=== PATIENT | female | born 1970 | race Hispanic/Latino ===

== ENCOUNTER 2017-10-02 14:28 | Emergency (ER) | payer OTHER ==
[2017-10-02 15:10] LABS: BASOPHILS % (AUTO) 0.7 % (0.0-5.0); HEMATOCRIT 43.8 % (36-48); LYMPHOCYTES % (AUTO) 30.3 % (21.0-51.0); MEAN CORPUSCULAR HEMOGLOBIN 30.1 pg (27.0-33.0); MEAN CORPUSCULAR HGB CONC 34.2 g/dL (32.0-36.0); MEAN CORPUSCULAR VOLUME 87.8 fL (79-99); MONOCYTES % (AUTO) 6.2 % (3.0-13.0); NEUTROPHILS % (AUTO) 61.8 % (40.0-77.0); PLATELET COUNT (AUTO) 306 K/uL (130-400); RED BLOOD CELL COUNT(AUTO) 4.98 MIL/uL (4.00-5.50); RED CELL DISTRIBUTION WIDTH 13.4 % (11.0-15.5); WHITE BLOOD COUNT (AUTO) 7.7 K/uL (4.8-10.8)
[2017-10-02 15:26] LABS: CREATININE 0.8 mg/dL (0.5-1.5); POTASSIUM 3.8 mmol/L (3.5-5.1)
[2017-10-02 15:30] LABS: ALBUMIN 3.5 g/dL (3.5-5.0); BILIRUBIN,TOTAL 0.4 mg/dL (0.2-1.0); TOTAL PROTEIN, SERUM 7.3 g/dL (6.0-8.3)
[2017-10-02 15:40] LABS: CREATINE KINASE MB 0.7 ng/mL (0.5-3.6)
== END 2017-10-02 19:13 | disposition home or self-care (01) ==
LOC: EDH 14:28
DX: R55 Syncope and collapse (principal)
CPT/HCPCS: 36415; 70450; 73070; 76700; 80053; 81025; 82550; 82553; 84484; 85025; 93005

== ENCOUNTER 2020-07-12 14:51 | Emergency (ER) | payer OTHER ==
[2020-07-12] MEDS ORDERED: TETANUS/DIPHTHERIA TOXOID [ADULT] 0.5 ML VIAL IM ONE (15:35)
[2020-07-12] MEDS ORDERED: L.E.T. GEL 3ML SYG TP ONE (16:01)
== END 2020-07-12 18:16 | disposition home or self-care (01) ==
LOC: EDH 14:51
DX: S61.112A Laceration without foreign body of left thumb with damage to nail, initial encounter (principal); Z98.890 Other specified postprocedural states; W26.0XXA Contact with knife, initial encounter; Y93.G3 Activity, cooking and baking; Y92.098 Other place in other non-institutional residence as the place of occurrence of the external cause; Y99.8 Other external cause status
CPT/HCPCS: 12001; 90471; 90714